=== PATIENT | male | born 1985 | race Caucasian/White ===

== ENCOUNTER 2017-06-16 17:32 | Emergency (ER) | payer SELFPAY ==
[~2017-06-16] VITALS: Ht 177.8 cm; Wt 68.0 kg
[2017-06-16] MEDS ORDERED: SODIUM CHLORIDE 0.9% 1,000 ML IVB ONE (17:53)
[2017-06-16] MEDS ORDERED: NALOXONE HCL 1MG/ML 2ML SYRINGE IV ONE (18:00)
[2017-06-16 19:20] LABS: Basophils # (auto) 0 uL; CONDITION Y; Eosinophils # (auto) 0.4 uL; Eosinophils % (auto) 4.8 % (0.0-7.0); Hematocrit 39.8 % (41.0-53.0); Hemoglobin 13.2 g/dL (13.5-17.5); Lymphocytes # (auto) 2.8 uL; Lymphocytes % (auto) 34.8 % (10.0-50.0); Mean Corpuscular Hemoglobin 28.8 pg (28.0-32.0); Mean Corpuscular Hgb Conc. 33.1 g/dL (32.0-36.0); Mean Corpuscular Volume 86.9 fL (80.0-100.0); Monocytes # (auto) 0.7 uL; Monocytes % (auto) 8.7 % (0.0-12.0); Neutrophils # (auto) 4.2 uL; Neutrophils % (auto) 51.7 % (37.0-80.0); Platelet Count (auto) 278 10^3/uL (140-450); Red Cell Distribution Width 14.8 % (11.6-16.0)
[2017-06-16 19:35] LABS: Albumin 3.6 g/dL (3.4-5.0); Alkaline Phosphatase 35 U/L (45-117); Anion Gap 6 (5-15); Aspartate Aminotransferase 98 U/L (15-37); Bilirubin, Total 0.6 mg/dL (0.2-1.0); Blood Urea Nitrogen 12 mg/dL (7-18); Calcium 9.2 mg/dL (8.5-10.1); Carbon Dioxide 29 mmol/L (21-32); Chloride 109 mmol/L (98-107); GFR African American 122 mL/min; GFR Non-African American 101 mL/min; Glucose 85 mg/dL (74-106); Potassium 3.7 mmol/L (3.5-5.1); Sodium 144 mmol/L (136-145); Total Protein 7.2 g/dL (6.4-8.2)
[2017-06-16 20:42] VITALS: BP 124/86
== END 2017-06-16 21:33 | disposition home or self-care (01) ==
LOC: ER 17:32
DX: T65.91XA Toxic effect of unspecified substance, accidental (unintentional), initial encounter (principal); G92 Toxic encephalopathy; F11.20 Opioid dependence, uncomplicated; F12.10 Cannabis abuse, uncomplicated; F17.210 Nicotine dependence, cigarettes, uncomplicated; Z59.0 Homelessness; Y92.89 Other specified places as the place of occurrence of the external cause
CPT/HCPCS: 36415; 80053; 80320; 85025; 93005; 94761; 96361; 96374; 99285; J7030